=== PATIENT | male | born 1985 | race Caucasian/White ===

== ENCOUNTER 2021-05-25 00:38 | Inpatient (IN) | payer MEDICAID ==
[~2021-05-25] VITALS: Ht 165.1 cm; Wt 45.4 kg
[2021-05-25] MEDS ORDERED: ACETAMINOPHEN ES 500 MG TABLET PO ONE (02:30)
[2021-05-25] MEDS ORDERED: IV LR 1000 ML 1,000 ML BAG IV ONE (02:30)
--- NOTE | 2021-05-25 02:30 | NUR ---
BIBS PT A/O X 3. C/O CONSTIPATION X 2 MONTHS AND TODAY, "I FELT SOMETHING BROKE INSIDE". PT CONNECTED TO MONITOR. BARBARA HULL MD ORDERS
[2021-05-25] MEDS ORDERED: ACETAMINOPHEN ES 500 MG TABLET ONE (02:56)
[2021-05-25] MEDS ORDERED: IV NS 0.9% 250 ML IV ONE (02:59)
[2021-05-25] MEDS ORDERED: IOHEXOL-300 100 ML VIAL IV ONE (02:59)
[2021-05-25] MEDS ORDERED: CT SWABBABLE VALVE TRANS SET 1 EA INFUS.SET MC ONE (02:59)
[2021-05-25 03:00] LABS: BASOPHILS % (AUTO) 0.2 % (0.0-2.0); HEMATOCRIT 40 % (39-51); HEMOGLOBIN 13.3 g/dL (13.5-17.5); LYMPHOCYTES # (AUTO) 0.6 K/uL (0.8-4.8); LYMPHOCYTES % (AUTO) 5.6 % (20.0-44.0); MEAN CORPUSCULAR HGB CONC 34 g/dl (31.0-36.0); MEAN CORPUSCULAR VOLUME 87 fL (80-96); MONOCYTES # (AUTO) 0.6 K/uL (0.1-1.30); NEUTROPHILS # (AUTO) 9.8 K/uL (1.8-8.9); NEUTROPHILS % (AUTO) 89.2 % (43.0-81.0); PLATELET COUNT (AUTO) 243 K/uL (150-450); RED BLOOD CELL COUNT(AUTO) 4.53 MIL/uL (4.5-6.0); WHITE BLOOD COUNT (AUTO) 10.9 K/uL (4.3-11.0)
--- NOTE | 2021-05-25 03:12 | NUR ---
PT OUT TO CT.
[2021-05-25 03:23] LABS: CALCIUM, SERUM 8.9 mg/dL (8.5-10.1); CARBON DIOXIDE 28 mmol/L (21-32); CHLORIDE 93 mmol/L (98-107); CREATININE 0.9 mg/dL (0.6-1.3); GLUCOSE 104 mg/dL (74-106); POTASSIUM 3.7 mmol/L (3.5-5.1); SODIUM SERUM 130 mmol/L (136-145); UREA NITROGEN, BLOOD 10 mg/dL (7-18)
[2021-05-25 03:27] LABS: BILIRUBIN,URINE NEGATIVE (NEGATIVE); COLOR,URINE YELLOW (YELLOW); LEUKOCYTE ESTERASE ,URINE NEGATIVE (NEGATIVE); NITRITE, URINE NEGATIVE (NEGATIVE); PROTEIN,URINE NEGATIVE (NEGATIVE); UGLUCOSE NEGATIVE (NEGATIVE); UROBILINOGEN,URINE 0.2 EU/dL (0.2)
[2021-05-25 03:34] LABS: ALANINE AMINOTRANSFERASE 65 U/L (12-78); ALBUMIN 3.6 g/dL (3.4-5.0); ALKALINE PHOSPHATASE 201 U/L (46-116); ASPARTATE AMINOTRANSFERASE 68 U/L (15-37); BILIRUBIN,DIRECT 0.1 mg/dL (0.0-0.2); BILIRUBIN,TOTAL 0.3 mg/dL (0.2-1.0); TOTAL PROTEIN, SERUM 8.6 g/dL (6.4-8.2)
--- NOTE | 2021-05-25 04:03 | NUR ---
PT VOIDED 200 ML OF URINE
--- NOTE | 2021-05-25 04:19 | NUR ---
02 SAT 93% ON ROOM AIR. PT PLACED ON 2 L OF O2 VIA NC. CURRENT SAT WITH O2 97%
[2021-05-25] MEDS ORDERED: IV NS 0.9% 1,000 ML BAG IV ONE (04:30)
[2021-05-25] MEDS ORDERED: CEFTRIAXONE 1GM BAG (ER ONLY) 50 ML IV ONE ×2 (04:30→04:31)
[2021-05-25] MEDS ORDERED: AZITHROMYCIN 500 MG VIAL ONE (04:51)
[2021-05-25] MEDS ORDERED: AZITHROMYCIN 500 MG in IV D5W 250 ML IV ONE (05:00)
--- NOTE | 2021-05-25 05:20 | NUR ---
PT ON ROOM AIR O2 SAT 93-94% AWARE
[2021-05-25] MEDS ORDERED: Z GUARD REMEDY 4 OZ OINT TP PRN (06:00)
[2021-05-25] MEDS ORDERED: ACETAMINOPHEN 325 MG TABLET PO PRN (06:00)
[2021-05-25] MEDS ORDERED: MAG HYDROX/AL HYDROX/SIMETH 30 ML UDC PO PRN (06:00)
[2021-05-25] MEDS ORDERED: ONDANSETRON HCL/PF 4 MG/2 ML VIAL IVP PRN (06:00)
[2021-05-25] MEDS ORDERED: MAGNESIUM HYDROXIDE 30 ML UDC PO PRN (06:00)
[2021-05-25] MEDS ORDERED: IV NS 0.9% 1,000 ML IV PRN (06:00)
--- NOTE | 2021-05-25 06:00 | NUR ---
PT VOIDED 300 MLOF URINE.
--- NOTE | 2021-05-25 07:03 | NUR ---
PT REMAINS IN STABLE CONDITION CURRENTLY ON ROOM AIR O2 SAT 96% AWAITING INAPATIENT BED.
[2021-05-25] MEDS: PANTOPRAZOLE 40 MG TABLET.DR PO SCH (07:44)
[2021-05-25] MEDS ORDERED: PANTOPRAZOLE 40 MG TABLET.DR PO ONE (07:45)
[2021-05-25] MEDS ORDERED: ENOXAPARIN SODIUM 40 MG/0.4 ML DISP.SYRIN SQ ONE (07:50)
[2021-05-25 09:42] LABS: BACTERIA,URINE Rare /HPF (None Seen); SQUAMOUS EPITHELIAL CELL,UR Rare /HPF (None Seen); WBC,URINE 0-2 /HPF (0-3)
[2021-05-25] MEDS: ENOXAPARIN SODIUM 40 MG/0.4 ML DISP.SYRIN SQ SCH (10:00)
[2021-05-25] MEDS ORDERED: VANCOMYCIN 1 GM in IV D5W 250 ML IV ONE (14:00)
[2021-05-25] MEDS: CEFEPIME 2 GM in IV D5W 100 ML IV SCH ×2 (14:07→22:00)
[2021-05-25] MEDS ORDERED: CLONIDINE HCL 0.1 MG TABLET PO PRN (16:30)
[2021-05-25] MEDS ORDERED: LOPERAMIDE HCL (2 MG CAP) 2 MG CAPSULE PO PRN (16:30)
[2021-05-25] MEDS: LORAZEPAM INJ 2 MG/ML VIAL IV PRN (16:46)
[2021-05-25] MEDS ORDERED: METHOCARBAMOL (500MG) 500 MG TABLET ONE (16:57)
[2021-05-25] MEDS: METHOCARBAMOL (500MG) 500 MG TABLET PO SCH (17:00)
[2021-05-25] MEDS ORDERED: LORAZEPAM INJ 2 MG/ML VIAL ONE (17:18)
[2021-05-25] MEDS ORDERED: CLONIDINE HCL 0.1 MG TABLET ONE (17:18)
--- NOTE | 2021-05-26 02:34 | NUR ---
PT SLEEPING COMFORTABLY BREATHING EVEN AND UNLABORED EASILY AROUSABLE. ALL V/S STABLE AND ALL NEEDS MET.
[2021-05-26] MEDS: VANCOMYCIN 1 GM in IV D5W 250 ML IV SCH ×2 (02:51→14:25)
[2021-05-26] MEDS ORDERED: METHOCARBAMOL (500MG) 500 MG TABLET ONE ×3 (05:07→17:45)
[2021-05-26 05:08] LABS: BASOPHILS % (AUTO) 0.1 % (0.0-2.0); EOSINOPHILS % (AUTO) 0.2 % (0.0-6.0); HEMATOCRIT 42 % (39-51); HEMOGLOBIN 13.7 g/dL (13.5-17.5); LYMPHOCYTES # (AUTO) 1.9 K/uL (0.8-4.8); LYMPHOCYTES % (AUTO) 26.4 % (20.0-44.0); MEAN CORPUSCULAR HGB CONC 33 g/dl (31.0-36.0); MEAN CORPUSCULAR VOLUME 90 fL (80-96); MONOCYTES # (AUTO) 0.6 K/uL (0.1-1.30); MONOCYTES % (AUTO) 8.5 % (2.0-12.0); NEUTROPHILS # (AUTO) 4.6 K/uL (1.8-8.9); NEUTROPHILS % (AUTO) 64.8 % (43.0-81.0); PLATELET COUNT (AUTO) 221 K/uL (150-450); RED BLOOD CELL COUNT(AUTO) 4.69 MIL/uL (4.5-6.0); WHITE BLOOD COUNT (AUTO) 7.1 K/uL (4.3-11.0)
[2021-05-26] MEDS: METHOCARBAMOL (500MG) 500 MG TABLET PO SCH ×3 (05:12→17:14)
[2021-05-26 05:24] LABS: CALCIUM, SERUM 8.7 mg/dL (8.5-10.1); CREATININE 0.8 mg/dL (0.6-1.3); MAGNESIUM 2.4 mg/dL (1.8-2.4); PHOSPHORUS 3.2 mg/dL (2.5-4.9); POTASSIUM 3.5 mmol/L (3.5-5.1)
[2021-05-26] MEDS: IV LR 1000 ML 1,000 ML IV PRN (06:07)
[2021-05-26] MEDS: CEFEPIME 2 GM in IV D5W 100 ML IV SCH ×3 (06:07→21:00)
[2021-05-26] MEDS: PANTOPRAZOLE 40 MG TABLET.DR PO SCH (08:02)
[2021-05-26] MEDS ORDERED: ENOXAPARIN SODIUM 40 MG/0.4 ML DISP.SYRIN SQ ONE (08:11)
[2021-05-26] MEDS ORDERED: AZITHROMYCIN 250 MG TABLET ONE (08:12)
[2021-05-26] MEDS ORDERED: PANTOPRAZOLE 40 MG TABLET.DR PO ONE (08:12)
[2021-05-26] MEDS: NICOTINE PATCH (21MG) 21 MG PATCH.TD24 TD SCH (08:40)
[2021-05-26] MEDS: ENOXAPARIN SODIUM 40 MG/0.4 ML DISP.SYRIN SQ SCH (08:52)
[2021-05-26] MEDS ORDERED: AZITHROMYCIN 250 MG TABLET PO ONE (09:00)
[2021-05-26] MEDS ORDERED: CEFTRIAXONE 1 G in IV D5W 50 ML IV SCH (09:00)
[2021-05-26] MEDS ORDERED: LORAZEPAM INJ 2 MG/ML VIAL ONE ×2 (14:15→20:22)
[2021-05-26] MEDS: LORAZEPAM INJ 2 MG/ML VIAL IV PRN ×2 (14:26→20:26)
[2021-05-26] MEDS ORDERED: ONDANSETRON HCL/PF 4 MG/2 ML VIAL ONE (17:38)
--- NOTE | 2021-05-26 19:05 | NUR ---
PT SLEEPING, ATTACHED TO MONITOR AND POX
--- NOTE | 2021-05-26 20:15 | NUR ---
PT COMPLAINING OF "JUMPING OUT OF SKIN". ORDER FOR PRN ATIVAN NOTED AND CARRIED OUT
[2021-05-26] MEDS ORDERED: LOPERAMIDE HCL (2 MG CAP) 2 MG CAPSULE ONE (23:46)
--- NOTE | 2021-05-27 00:15 | NUR ---
Patient is resting comfortably in bed with eyes closed. Easily aroused. VSS
[2021-05-27] MEDS ORDERED: WATER FOR INJECTION,STERILE 10 ML ONE (00:30)
[2021-05-27] MEDS ORDERED: LORAZEPAM INJ 2 MG/ML VIAL ONE (02:09)
[2021-05-27] MEDS: VANCOMYCIN 1 GM in IV D5W 250 ML IV SCH (02:33)
[2021-05-27] MEDS: LORAZEPAM INJ 2 MG/ML VIAL IV PRN (02:33)
[2021-05-27 04:35] LABS: BASOPHILS % (AUTO) 0.1 % (0.0-2.0); EOSINOPHILS % (AUTO) 0.1 % (0.0-6.0); HEMATOCRIT 39 % (39-51); HEMOGLOBIN 13.1 g/dL (13.5-17.5); LYMPHOCYTES # (AUTO) 1.2 K/uL (0.8-4.8); LYMPHOCYTES % (AUTO) 17.8 % (20.0-44.0); MEAN CORPUSCULAR HGB CONC 33 g/dl (31.0-36.0); MEAN CORPUSCULAR VOLUME 87 fL (80-96); MONOCYTES # (AUTO) 0.5 K/uL (0.1-1.30); MONOCYTES % (AUTO) 6.8 % (2.0-12.0); NEUTROPHILS # (AUTO) 5.3 K/uL (1.8-8.9); NEUTROPHILS % (AUTO) 75.2 % (43.0-81.0); PLATELET COUNT (AUTO) 265 K/uL (150-450); RED BLOOD CELL COUNT(AUTO) 4.49 MIL/uL (4.5-6.0)
[2021-05-27] MEDS: CEFEPIME 2 GM in IV D5W 100 ML IV SCH ×3 (04:45→23:02)
[2021-05-27 04:49] LABS: CALCIUM, SERUM 8.9 mg/dL (8.5-10.1); CREATININE 0.9 mg/dL (0.6-1.3)
--- NOTE | 2021-05-27 07:21 | NUR ---
GOT BED 207
[2021-05-27] MEDS: PANTOPRAZOLE 40 MG TABLET.DR PO SCH (07:30)
[2021-05-27] MEDS ORDERED: ENOXAPARIN SODIUM 40 MG/0.4 ML DISP.SYRIN SQ ONE (07:45)
[2021-05-27] MEDS ORDERED: METHOCARBAMOL (500MG) 500 MG TABLET ONE (07:45)
[2021-05-27] MEDS ORDERED: PANTOPRAZOLE 40 MG TABLET.DR PO ONE (07:46)
[2021-05-27] MEDS: METHOCARBAMOL (500MG) 500 MG TABLET PO SCH ×3 (08:30→17:21)
[2021-05-27] MEDS: ENOXAPARIN SODIUM 40 MG/0.4 ML DISP.SYRIN SQ SCH (08:30)
[2021-05-27] MEDS: NICOTINE PATCH (21MG) 21 MG PATCH.TD24 TD SCH (09:06)
[2021-05-27] MEDS: POTASSIUM CHLORIDE 20 MEQ TAB.PRT.SR PO SCH ×2 (09:46→11:17)
[2021-05-27] MEDS ORDERED: POTASSIUM CHLORIDE 20 MEQ TAB.PRT.SR PO ONE (09:47)
--- NOTE | 2021-05-27 10:03 | NUR ---
TRANSFERRED IN STABLE CONDITION
--- NOTE | 2021-05-27 10:30 | NUR ---
Patient arrived via gurney at 10:30am, from ER. Patient AO X 4, with episodes of confusion and anxiety, redirection and reorientation provided, noted with help. No apparent distress noted, breathing even and unlabored. Admitting hospitalist made aware of the patient's arrival. Patient admitting diagnosis pneumonia. Patient preferred not to have his vitals taken explained risks, benefits and hospital protocol thrice, still refused and says he feels okay right now, last vitals from ER report: BP 112/51 PR74 RR18 T98.9 0299% room air, no dizziness, no palpitations, no complained of facial numbness or weakness, no extremity numbness or weakness at this time, no shortness of breath. Skin intact, warm to touch, no pallor or cyanosis noted, patient refused body check and said he only have tattoos, no open area, no wound per patient, patient prefers not to take photos of his tattoos, explained risks, benefits and hospital protocol thrice, still refused. Patient oriented with use of call lights, use of bed control, use of telephone and tv control, also introduces T[employer] and RN assigned for today, verbalized understanding and gratitude. All belongings written in the inventory list. All needs attended, kept clean and dry, call light left within reach, safety precautions in place, brakes locked, side rails up X 2, will monitor closely for any changes.
[2021-05-27] MEDS: MORPHINE SULFATE INJ 4 MG/ML DISP.SYRIN IV PRN ×2 (12:01→23:03)
[2021-05-27] MEDS ORDERED: VANCOMYCIN 0.75 GM in IV D5W 250 ML IV SCH (14:00)
[2021-05-27] MEDS: VANCOMYCIN 0.75 GM in IV D5W 250 ML IV SCH (14:33)
--- NOTE | 2021-05-27 19:14 | NUR ---
RN CLOSING NOTES Patient lying in bed, no SOB, respirations even and unlabored, no apparent distress noted, no dizziness, no palpitations, no chest pain. All due medications given per MD order, tolerating well. Hospitalist aware that ATB treatment and IV fluid on hold at this time, due to pending midline insertion. All needs attended, kept clean and dry, call light left within reach, safety precautions in place, frequent visual check rendered, brakes locked, side rails up X 2, will endorse to next shift for continuity of care.
[2021-05-27 20:26] VITALS: BP 122/87
[2021-05-28] MEDS: VANCOMYCIN 0.75 GM in IV D5W 250 ML IV SCH ×3 (00:10→16:40)
[2021-05-28] MEDS: IV LR 1000 ML 1,000 ML IV PRN (03:34)
[2021-05-28] MEDS: CEFEPIME 2 GM in IV D5W 100 ML IV SCH ×3 (06:36→21:45)
[2021-05-28 06:51] LABS: BASOPHILS % (AUTO) 0.2 % (0.0-2.0); EOSINOPHILS % (AUTO) 0.7 % (0.0-6.0); HEMATOCRIT 41 % (39-51); HEMOGLOBIN 13.7 g/dL (13.5-17.5); LYMPHOCYTES # (AUTO) 1.2 K/uL (0.8-4.8); LYMPHOCYTES % (AUTO) 15.7 % (20.0-44.0); MEAN CORPUSCULAR HGB CONC 33 g/dl (31.0-36.0); MEAN CORPUSCULAR VOLUME 86 fL (80-96); MONOCYTES # (AUTO) 0.7 K/uL (0.1-1.30); MONOCYTES % (AUTO) 10.1 % (2.0-12.0); NEUTROPHILS # (AUTO) 5.4 K/uL (1.8-8.9); NEUTROPHILS % (AUTO) 73.3 % (43.0-81.0); PLATELET COUNT (AUTO) 281 K/uL (150-450); RED BLOOD CELL COUNT(AUTO) 4.77 MIL/uL (4.5-6.0); WHITE BLOOD COUNT (AUTO) 7.4 K/uL (4.3-11.0)
--- NOTE | 2021-05-28 07:19 | NUR ---
RN OPENING NOTES RECEIVED PATIENT ALERT / ORIENTED X 4, ON ROOM AIR WITH NO SIGNS OF DISTRESS. WITH EQUAL AND UNLABORED BREATHING. WITH RIGHT UPPER ARM MIDLINE WITH LR RUNNING AT 100 ML/HR INFUSING WELL. ON NORMAL BODY ALIGNMENT. COMFORT MEASURES PROVIDED. WILL CONTINUE TO MONITOR PATIENT.
[2021-05-28 07:29] LABS: CALCIUM, SERUM 8.7 mg/dL (8.5-10.1); CREATININE 0.8 mg/dL (0.6-1.3); MAGNESIUM 1.9 mg/dL (1.8-2.4); POTASSIUM 3.6 mmol/L (3.5-5.1)
[2021-05-28 08:00] VITALS: BP 121/71
[2021-05-28] MEDS: PANTOPRAZOLE 40 MG TABLET.DR PO SCH (08:36)
[2021-05-28] MEDS: METHOCARBAMOL (500MG) 500 MG TABLET PO SCH ×3 (08:37→16:43)
[2021-05-28] MEDS: NICOTINE PATCH (21MG) 21 MG PATCH.TD24 TD SCH (08:37)
[2021-05-28] MEDS: ENOXAPARIN SODIUM 40 MG/0.4 ML DISP.SYRIN SQ SCH (08:43)
[2021-05-28] MEDS: MORPHINE SULFATE INJ 4 MG/ML DISP.SYRIN IV PRN ×2 (11:01→16:53)
--- NOTE | 2021-05-28 19:00 | NUR ---
RN CLOSING NOTES PATIENT ALERT / ORIENTED X 4, ON ROOM AIR WITH NO SIGNS OF DISTRESS. WITH EQUAL AND UNLABORED BREATHING. WITH RIGHT UPPER ARM MIDLINE WITH LR RUNNING AT 100 ML/HR INFUSING WELL. ON NORMAL BODY ALIGNMENT. COMFORT MEASURES PROVIDED. SAFETY MEASURES ENSURED WITH CALL LIGHT WITHIN REACH. SIDE RAILS RAISED. BED LOCKED AND AT LOWEST POSITION. WILL ENDORSE PATIENT FOR CONTINUITY OF CARE.
[2021-05-28 20:00] VITALS: BP 123/68
[2021-05-28] MEDS: LORAZEPAM INJ 2 MG/ML VIAL IV PRN (21:45)
[2021-05-29] MEDS: VANCOMYCIN 0.75 GM in IV D5W 250 ML IV SCH ×2 (01:12→09:08)
[2021-05-29] MEDS: CEFEPIME 2 GM in IV D5W 100 ML IV SCH (04:32)
[2021-05-29 06:44] LABS: BASOPHILS % (AUTO) 0.3 % (0.0-2.0); EOSINOPHILS % (AUTO) 0.6 % (0.0-6.0); HEMATOCRIT 38 % (39-51); HEMOGLOBIN 12.5 g/dL (13.5-17.5); LYMPHOCYTES # (AUTO) 1.5 K/uL (0.8-4.8); LYMPHOCYTES % (AUTO) 32.3 % (20.0-44.0); MEAN CORPUSCULAR HGB CONC 33 g/dl (31.0-36.0); MEAN CORPUSCULAR VOLUME 87 fL (80-96); MONOCYTES # (AUTO) 0.5 K/uL (0.1-1.30); MONOCYTES % (AUTO) 11.4 % (2.0-12.0); NEUTROPHILS # (AUTO) 2.6 K/uL (1.8-8.9); NEUTROPHILS % (AUTO) 55.4 % (43.0-81.0); PLATELET COUNT (AUTO) 249 K/uL (150-450); RED BLOOD CELL COUNT(AUTO) 4.37 MIL/uL (4.5-6.0); WHITE BLOOD COUNT (AUTO) 4.6 K/uL (4.3-11.0)
[2021-05-29] MEDS: IV LR 1000 ML 1,000 ML IV PRN (06:52)
[2021-05-29 07:11] LABS: CALCIUM, SERUM 7.9 mg/dL (8.5-10.1); CREATININE 0.9 mg/dL (0.6-1.3); MAGNESIUM 1.9 mg/dL (1.8-2.4); POTASSIUM 3.4 mmol/L (3.5-5.1)
--- NOTE | 2021-05-29 07:30 | NUR ---
MS RN OPENING NOTES RECEIVED PATIENT ON BED RESTING AND A/O X4. ON ROOM AIR TOLERATING WELL. NO SOB NOTED. NOT IN DISTRESS. WITH IV ACCESS AT RIGHT UPPER ARM MIDLINE WITH LR AT 100ML/HR INFUSING WELL. SAFETY MEASURES IN PLACED. CALL LIGHT WITHIN REACH. BED ON LOWEST LOCKED POSITION, SIDE RAILS UP X2. WILL CONTINUE TO MONITOR.
[2021-05-29 08:00] VITALS: BP 137/90
[2021-05-29] MEDS: ENOXAPARIN SODIUM 40 MG/0.4 ML DISP.SYRIN SQ SCH ×2 (09:00→09:11)
[2021-05-29] MEDS: NICOTINE PATCH (21MG) 21 MG PATCH.TD24 TD SCH (09:09)
[2021-05-29] MEDS: PANTOPRAZOLE 40 MG TABLET.DR PO SCH (09:09)
[2021-05-29] MEDS: METHOCARBAMOL (500MG) 500 MG TABLET PO SCH ×2 (09:10→12:32)
[2021-05-29] MEDS: MORPHINE SULFATE INJ 4 MG/ML DISP.SYRIN IV PRN ×2 (09:27→13:29)
[2021-05-29] MEDS ORDERED: LEVOFLOXACIN (250MG) 250 MG TABLET PO SCH (12:00)
[2021-05-29] MEDS ORDERED: POTASSIUM CHLORIDE 20 MEQ TAB.PRT.SR PO ONE (12:00)
[2021-05-29] MEDS ORDERED: METH500T6 PO (12:29)
[2021-05-29] MEDS ORDERED: DOXY100T2 PO (12:29)
[2021-05-29] MEDS ORDERED: LEVO250T59 PO (12:29)
--- NOTE | 2021-05-29 15:07 | NUR ---
MS PUBLICITY EXPERT NOTES PATIENT WAS SEEN BY DR. MO AND ORDERED PATIENT FOR DISCHARGE TO HOME. DISCHARGE INSTRUCTIONS AND EDUCATION PROVIDED TO PATIENT AND EXPLAINED MEDICATIONS AND PRESCRIPTIONS. PATIENT VERBALIZED UNDERSTANDING. DISCHARGE FORM AND BELONGINGS LIST FORM SIGNED BY PATIENT. ALL BELONGINGS ACCOUNTED FOR. NAME WRIST BAND AND IV LINE REMOVED. ASSISTED PATIENT TO THE [facility] IN STABLE CONDITION. MD AND CHARGE NURSE ARE AWARE OF THE DISCHARGE.
[2021-05-29] MEDS ORDERED: DOXYCYCLINE HYCLATE (100 MG) 100 MG TABLET PO SCH (21:00)
--- NOTE | 2021-05-31 14:39 | NUR ---
received call from lab that pt PCR covid(+), trying to call pt [phone] no answer, left ms with call back number. Called pt's sister Jada [phone] and phone is disconnected or no longer in service. Qa Intern Hunter Radford informed as well. Will try to call Elmer again with test result.
== END 2021-05-29 15:16 | disposition home or self-care (01) | DRG 720 ==
LOC: ER 00:41 → TRANSITION 05:53 → MEDSG2 05-27 09:59
PROVIDERS: ADMIT Nurse Practitioner Family; ATTEND Nurse Practitioner Family
PROC: 05H933Z Insertion of Infusion Device into Right Brachial Vein, Percutaneous Approach (ICD-10-PCS; principal; 2021-05-28)
DX: A41.89 Other specified sepsis (principal); J12.82 Pneumonia due to coronavirus disease 2019; E44.1 Mild protein-calorie malnutrition; J15.6 Pneumonia due to other Gram-negative bacteria; E87.1 Hypo-osmolality and hyponatremia; Z68.1 Body mass index [BMI] 19.9 or less, adult; R31.9 Hematuria, unspecified; F19.10 Other psychoactive substance abuse, uncomplicated; E86.1 Hypovolemia; F14.90 Cocaine use, unspecified, uncomplicated; F17.200 Nicotine dependence, unspecified, uncomplicated; K44.9 Diaphragmatic hernia without obstruction or gangrene; K59.00 Constipation, unspecified
CPT/HCPCS: 36415; 71045-TC; 80048-TC; 80076-TC; 80202-TC; 81001; 82550-TC; 83605-TC; 83735-TC; 84100-TC; 84484-TC; 85025-TC; 85730-TC; 87040-TC; 87081-TC; 87086-TC; 87806; 93307-TC; C9803; G0378; J0456; J0692; J0696; J1650; J2060; J2270; J2405; J3370; J7030; J7050; J7060; J7120; Q9967; U0003

== ENCOUNTER 2021-12-18 11:05 | Emergency (ER) | payer SELFPAY ==
[~2021-12-18] VITALS: Ht 162.6 cm; Wt 49.9 kg
[~2021-12-18 11:05] MED LIST: DOXY100T2 PO; LEVO250T59 PO; METH500T6 PO
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
[2021-12-18 11:37] VITALS: BP 111/77
--- NOTE | 2021-12-18 13:35 | NUR ---
DR BAIRES WAS AT PATIENTS ROOM FOR PATIENT PLAN OF CARE. PT DECIDEDNOT TO PROCEED W/ PLAN AND DECIDED TO LEAVE AGAINST MEDICAL ADVICE. LEFT W/OUT SIGNING ACI.
== END 2021-12-18 13:40 | disposition left against medical advice (07) ==
LOC: ER 11:06
DX: M65.841 Other synovitis and tenosynovitis, right hand (principal); L03.113 Cellulitis of right upper limb; Z79.899 Other long term (current) drug therapy
CPT/HCPCS: 73130-TC

== ENCOUNTER 2022-02-06 08:05 | Emergency (ER) | payer SELFPAY ==
[~2022-02-06] VITALS: Ht 162.6 cm; Wt 45.4 kg
--- NOTE | 2022-02-06 08:15 | NUR ---
To ER bed 4, c/o chest pain "it hurt's when i breath" and also i have gum infection, aaox3, breathing even and non labored, awaiting md orders
[2022-02-06] MEDS ORDERED: IBUPROFEN 600 MG TABLET ONE (08:23)
[2022-02-06] MEDS ORDERED: ACETAMINOPHEN ES 500 MG TABLET ONE (08:23)
[2022-02-06] MEDS ORDERED: ACETAMINOPHEN ES 500 MG TABLET PO ONE (08:30)
[2022-02-06] MEDS ORDERED: IBUPROFEN 600 MG TABLET PO ONE (08:30)
--- NOTE | 2022-02-06 09:24 | NUR ---
BACK FROM XRAY VIA WHEELCHAIR
[2022-02-06] MEDS ORDERED: IBUP-1957 PO (09:32)
--- NOTE | 2022-02-06 09:37 | NUR ---
Patient discharged to home in stable condition. Written and verbal after care instructions given. Patient verbalizes understanding of instruction.
[2022-02-06 09:38] VITALS: BP 116/84
== END 2022-02-06 09:38 | disposition home or self-care (01) ==
LOC: ER 08:05
DX: K02.9 Dental caries, unspecified (principal); R07.89 Other chest pain; F17.200 Nicotine dependence, unspecified, uncomplicated; Z79.899 Other long term (current) drug therapy
CPT/HCPCS: 71045-TC

== ENCOUNTER 2022-12-16 11:44 | Emergency (ER) | payer OTHER ==
[~2022-12-16] VITALS: Ht 165.1 cm; Wt 49.9 kg
[~2022-12-16 11:44] MED LIST changes: +IBUP-1957 PO
[2022-12-16] MEDS ORDERED: dexaMETHasone SOD PHOSPHATE 10 MG/ML VIAL IM ONE (13:30)
[2022-12-16] MEDS ORDERED: KETOROLAC TROMETHAMINE INJ 30 MG/ML VIAL IM ONE (13:30)
[2022-12-16] MEDS ORDERED: AMOX/CLAVULANATE 875 MG TABLET PO ONE (13:30)
[2022-12-16] MEDS ORDERED: AMOX-430 PO (13:34)
[2022-12-16] MEDS ORDERED: IBUP-1955 PO (13:34)
[2022-12-16] MEDS ORDERED: dexaMETHasone SOD PHOSPHATE 10 MG/ML VIAL ONE (14:19)
[2022-12-16] MEDS ORDERED: AMOX/CLAVULANATE 875 MG TABLET ONE (14:20)
[2022-12-16] MEDS ORDERED: KETOROLAC TROMETHAMINE 15 MG/ML VIAL ONE (14:20)
[2022-12-16 14:43] VITALS: BP 119/86; TEMP 98; O2SAT 99
== END 2022-12-16 14:45 | disposition home or self-care (01) ==
LOC: ER 11:49
DX: K04.7 Periapical abscess without sinus (principal); K02.9 Dental caries, unspecified; F17.200 Nicotine dependence, unspecified, uncomplicated
CPT/HCPCS: 99284; 96372 ×2; J1100; J1885

== ENCOUNTER 2023-02-26 20:36 | Emergency (ER) | payer SELFPAY ==
[~2023-02-26 20:36] MED LIST changes: +AMOX-430 PO; +IBUP-1955 PO
== END 2023-02-26 22:35 | disposition left against medical advice (07) ==
LOC: ER 20:36
DX: R10.9 Unspecified abdominal pain (principal); Z53.21 Procedure and treatment not carried out due to patient leaving prior to being seen by health care provider